=== PATIENT | male | born 1945 | race Caucasian/White ===

== ENCOUNTER 2016-07-07 08:41 | Day surgery (SDC) | payer OTHER, BC ==
[~2016-07-07] VITALS: Ht 177.8 cm; Wt 73.9 kg
[~2016-07-07 08:41] MED LIST: ADVIL200 MG PO; KEPPRA1000 MG PO; MULTIVITAMIN1 EAC2 PO; VITAMIN D31000 UNI2 PO
== END 2016-07-07 12:03 | disposition home or self-care (01) ==
LOC: CATH 08:41
DX: I87.8 Other specified disorders of veins (principal); C71.9 Malignant neoplasm of brain, unspecified; Z92.3 Personal history of irradiation; E78.5 Hyperlipidemia, unspecified; Z82.49 Family history of ischemic heart disease and other diseases of the circulatory system; Z80.42 Family history of malignant neoplasm of prostate
CPT/HCPCS: C1752; C1894; J0690; J1644; J2250; J3010; S0020

== ENCOUNTER → 2016-10-25 | Outpatient (CLI) | payer MEDICARE, BC ==
[~2016-10-25] MED LIST changes: +MATULANE50 MG PO
== END | disposition home or self-care (01) ==
LOC: CDC 11:55
DX: R94.31 Abnormal electrocardiogram [ECG] [EKG] (principal); C71.9 Malignant neoplasm of brain, unspecified
CPT/HCPCS: 93000

== ENCOUNTER → 2016-11-26 | Outpatient (CLI) | payer OTHER, BC | END | disposition home or self-care (01) | LOC: AMB 11-24 08:30 | PROC: 0JPT0XZ Removal of Tunneled Vascular Access Device from Trunk Subcutaneous Tissue and Fascia, Open Approach (ICD-10-PCS; principal; 2016-11-26) | DX: Z45.2 Encounter for adjustment and management of vascular access device (principal); I87.8 Other specified disorders of veins; Z85.9 Personal history of malignant neoplasm, unspecified ==